=== PATIENT | male | born 1945 | race Caucasian/White ===

== ENCOUNTER 2021-04-03 14:19 | Outpatient (CLI) | payer MEDICARE, BC, SELFPAY ==
--- NOTE | ~2021-04-03 | US_ITS ---
EXAMINATION: US art doppler w peggy ADAMS EXAM DATE: 04/03/2021 14:54 INDICATION: I73.9 - Peripheral vascular disease, unspecified. TECHNIQUE: Segmental pressures and plethysmographic and Doppler waveforms of the brachial and lower e xtremity arteries were obtained. There is no prior study for comparison. FINDINGS: Right and left brachial artery pressures of 159 mm Hg and 162 mm Hg, respectively, are concordant (no rmal difference <= 30 mmHg). RIGHT LEG: The ankle-brachial index (BRE) is could not obtain (normal >= 0.9-1). The great toe-brachial index (TBI) is 1.06 (normal >= 0.65). The lower extremity ratios, segmental pressure gradients as follows; Proximal superficial femoral artery:- Could not obtain ( mmHg). Distal superficial femoral artery: ----- Could not obtain ( mmHg). Popliteal: Could not obtain ( mmHg). Dorsalis pedis: Could not obtain ( mmHg). Posterior tibial: Could not obtain ( mmHg). (Normal gradients <= 20-30 mmHg between adjacent levels on the same leg or the same levels on the two legs). Arterial waveforms are biphasic. LEFT LEG: The ankle-brachial index (BRE) is could not obtain (normal >= 0.9-1). The great toe-brachial index (TBI) is 1.20 (normal >= 0.65). The lower extremity ratios, segmental pressure gradients as follows; Proximal superficial femoral artery:- Could not obtain ( mmHg). Distal superficial femoral artery: ----- Could not obtain ( mmHg). Popliteal: Could not obtain ( mmHg). Dorsalis pedis: Could not obtain ( mmHg). Posterior tibial: Could not obtain ( mmHg). (Normal gradients <= 20-30 mmHg between adjacent levels on the same leg or the same levels on the two legs). Arterial waveforms are biphasic. IMPRESSION: 1. Could not obtain ABIs, could not Cuff Occlude arteries. 2. Biphasic waveforms. Normal toe brachial indices bilaterally. Reviewed, dictated and finalized at location B. NCIAL ASSOCIATE
== END 2021-04-03 14:20 | disposition home or self-care (01) ==
PROVIDERS: PCP Family Medicine; Visit Provider Family Medicine
DX: I73.9 Peripheral vascular disease, unspecified (principal)
CPT/HCPCS: 93923

== ENCOUNTER 2021-07-27 13:51 | Outpatient (CLI) | payer MEDICARE, BC, SELFPAY ==
--- NOTE | ~2021-07-27 | US_ITS ---
EXAMINATION: US venous doppler LE RT DATE: 07/27/2021 14:52 INDICATION: Right lower limb edema. TECHNIQUE: Grayscale ultrasound images without and with compression and Doppler ultrasound images of the right lower extremity veins were obtained. COMPARISON: None. FINDINGS: The visualized portions of right common femoral vein, profunda (deep) femoral vein, femoral vein, pop liteal vein, peroneal veins, posterior tibial veins, and greater saphenous vein outflow are patent. T here is a 2.6 cm hypoechoic and anechoic subcutaneous mass anterior to the tibia. IMPRESSION: 1. No deep venous thrombosis. 2. Subcutaneous mass anterior to the tibia, likely a hematoma. Reviewed, dictated and finalized at location A.
== END 2021-07-27 13:52 | disposition home or self-care (01) ==
PROVIDERS: PCP Family Medicine; Visit Provider Family Medicine
DX: R22.41 Localized swelling, mass and lump, right lower limb (principal)
CPT/HCPCS: 93971

== ENCOUNTER → 2022-04-16 08:54 | Outpatient (CLI) | payer MEDICARE, SELFPAY ==
--- NOTE | ~2022-04-16 | MM_ITS ---
EXAMINATION: MM diagnostic derick BI w haley HISTORY: Bilateral breast lumps, tenderness TECHNIQUE: Bilateral MLO and CC 3-D tomosynthesis images were performed and synthetic 2-D images were generated. CAD analysis was submitted and interpreted. COMPARISON: None BREAST PARENCHYMAL COMPOSITION: There are scattered areas of fibroglandular density. FINDINGS: Mild bilateral gynecomastia. No suspicious mass or architectural distortion, malignant calc ification, skin thickening or retraction is detected. IMPRESSION: Mild bilateral gynecomastia . BI-RADS Category 2: Benign finding(s). Reviewed, dictated and finalized at location A. WORKS ASSEMBLER
== END ==
PROVIDERS: PCP Family Medicine; Visit Provider Nurse Practitioner Gerontology
DX: N64.4 Mastodynia (principal); N62 Hypertrophy of breast
CPT/HCPCS: 77062; 77066; G0279

== ENCOUNTER 2024-12-23 13:24 | Outpatient (CLI) | payer MEDICARE, BC, SELFPAY ==
--- NOTE | 2024-12-23 14:03 | ECHO_ITS ---
Patient Info Name: Jack Deluca Age: 79 years : 1945 Gender: Male Ht: 68 in Wt: 280 lbs BSA: 2.53 m2 HR: 61 bpm BP: 134 / 85 mmHg Technical Quality: Poor Exam Date: 12/23/2024 2:14 PM Patient Status: O Admit Date: 12/23/2024 Exam Type: CA echo dop bubble study w con Complete two-dimentional, color flow and Doppler transthoracic echocardiogram is performed with agitated saline and with contrast to opacify the left ventricle and to improve the delineation of the left ventricle endocardial borders. Systems Integration Manager: Edwin Soto III Attending Provider: Maia Cabrera Contrast/Agitated Saline Contrast/Ag. Saline: Agitated Saline Amount: 12.00 ml Existing IV Access: No IV Access Condition: patent with no signs of infiltration New IV Access: Left Site Condition: IV removed Contrast/Ag. Saline: Definity Amount: 2.00 ml Administered By: Edwin Soto III Existing IV Access: No IV Access Condition: patent with no signs of infiltration New IV Access: Left Site Condition: IV removed Reason for Poor Study: poor echocardiographic windows Summary 1. Definity contrast administered improved wall motion interpretation. 2. Left ventricular chamber dimension is normal. 3. Left ventricular systolic function is normal, estimated at 60-65. 4. The left ventricular diastolic function is grade I diastolic dysfunction. 5. E/e' 3 is not elevated. 6. Left atrial chamber dimension is mildly enlarged. 7. There is mild aortic valve sclerosis. 8. There is trace mitral valve regurgitation. 9. The aortic root size at the sinus of Valsalva is mildly dilated at 4.3 cm. 10. The prox ascending aorta size is moderately dilated at 4.6 cm. Left Ventricle E/e' 3 is not elevated. Left ventricular chamber dimension is normal. Left ventricular systolic function is normal, estimated at 60-65. The left ventricular diastolic function is grade I diastolic dysfunction. Definity contrast administered improved wall motion interpretation. Right Ventricle Right ventricular chamber dimension is normal. Right ventricular systolic function is normal and with normal TAPSE 2.2 cm. Left Atria Left atrial chamber dimension is mildly enlarged. Right Atria Right atrial chamber dimension is normal. Atrial Septum Intact interatrial septum visualized by 2D and agitated saline imaging. Agitated saline injection with and without valsalva maneuver opacified right side cardiac chambers without obvious shunt to left side cardiac chambers. Aortic Valve The aortic valve is trileaflet. There is mild aortic valve sclerosis. There is no aortic valve stenosis. There is no aortic valve regurgitation. Pulmonic Valve There is no pulmonic regurgitation. Mitral Valve There is no mitral valve stenosis. There is trace mitral valve regurgitation. Tricuspid Valve There is no tricuspid valve regurgitation. Pericardium/Pleural There is no pericardial effusion. Inferior Vena Cava Normal inferior vena cava with >50% collapse upon inspiration consistent with normal right atrial pressure, 5 mmHg. Aorta The aortic root size at the sinus of Valsalva is mildly dilated at 4.3 cm. The prox ascending aorta size is moderately dilated at 4.6 cm. Left Ventricular Outflow Tract Name Value Normal LVOT Doppler LVOT Peak Velocity 107 cm/s LVOT Peak Gradient 5 mmHg LVOT Mean Gradient 2 mmHg LVOT VTI 23 cm LVOT VTI/AV VTI Ratio 1.1 Pulmonic Valve Name Value Normal PV Doppler PV Peak Velocity 94 cm/s PV Peak Gradient 4 mmHg PV Mean Gradient 2 mmHg Mitral Valve Name Value Normal MV Doppler MV Peak Gradient 2 mmHg MV Mean Gradient 1 mmHg MV Diastolic Function MV E Peak Velocity 40 cm/s MV A Peak Velocity 53 cm/s MV E/A 0.8 MV Decel Time (PW) 346 ms MV Annular TDI MV E/e' (Septal) 4.1 MV E/e' (Lateral) 3.4 MV E/e' (Average) 3.7 Tricuspid Valve Name Value Normal Estimated PAP/RSVP RA Pressure 5 mmHg <=5 TV Annular TDI TV Lateral Bertha s' Velocity 19.5 cm/s >=9.5 Aortic Valve Name Value Normal AV Doppler AV Peak Velocity 118 cm/s AV Peak Gradient 6 mmHg AV Mean Gradient 3 mmHg AV VTI 21 cm AV DI (Marek) 0.91 Ventricles Name Value Normal LV Fractional Shortening/Ejection Fraction 2D/MM LV Diastolic Volume (4C MOD) 113 ml LV EF (4C MOD) 66 % LV Diastolic Volume (2C MOD) 94 ml LV EF (2C MOD) 58 % LV Diastolic Volume (BP MOD) 106 ml 62-150 LV Diastolic Volume Index (BP MOD) 42 ml/m2 34-74 LV Systolic Volume (BP MOD) 40 ml 21-61 LV Systolic Volume Index (BP MOD) 16 ml/m2 11-31 LV EF (BP MOD) 62 % 52-72 LV Diastolic Length (4C) 8.2 cm LV Systolic Length (4C) 6.0 cm LV Stroke Volume (4C MOD) 74 ml Atria Name Value Normal LA Dimensions LA Volume (4C A-L) 71 ml LA Volume (BP A-L) 86 ml RA Dimensions RA Systolic Major [place] Length (4C) 6.5 cm 2.1-2.7 RA Area (4C) 27.9 cm2 <=18.0 Report Signatures
--- OUTSIDE RECORDS SUMMARY | 2024-12-23 14:56 | XMS_ITS | Clinical Summary ---
Author Organization [facility] [place] [address] Address [address] [place] [address] Care Team Providers Care Inspection Clerk Name Role Phone Triston Ray MD Primary Care Provider Allergies Active Allergy Reactions Criticality Noted Date Comments Penicillins Diarrhea Low 05/05/2021 Medications aspirin 325 mg tablet Take 1 tablet (325 mg total) by mouth daily Active atenoloL (TENORMIN) 50 mg tablet Take 1 tablet (50 mg total) by mouth daily 03/06/2021 Active atorvastatin (LIPITOR) 20 mg tablet Take 1 tablet (20 mg total) by mouth daily 04/09/2021 Active finasteride (PROSCAR) 5 mg tablet Take 1 tablet (5 mg total) by mouth daily 04/09/2021 Active npeqfwji-xkel-p ollag-hyalur ac [id number] mg capsule Take by mouth Active potassium chloride ER 20 mEq CR tablet Take 1 tablet (20 mEq total) by mouth daily 02/28/2021 Active tamsulosin (FLOMAX) 0.4 mg extended release capsule Take 1 capsule (0.4 mg total) by mouth nightly 04/09/2021 Active clindamycin (CLEOCIN) 150 mg capsule Take 1 capsule (150 mg total) by mouth as needed 4 caps for dental work Active irbesartan (AVAPRO) 150 mg tablet Take 1 tablet (150 mg total) by mouth daily 05/25/2021 Active cholecalciferol (VITAMIN D-3) 2000 unit capsule 1 capsule (2,000 Units total) Active vitamin E (AQUASOL E) 400 unit capsule Take 1 capsule (400 Units total) by mouth Active saw palmetto 450 mg capsule Take by mouth 2 (two) times a day Active bumetanide (BUMEX) 2 mg tablet Take 1 tablet (2 mg total) by mouth daily 06/17/2023 Active magnesium oxide 400 mg magnesium capsule Take by mouth Active vit C/E/cuperic/zin c/lutein (PRESERVISION LUTEIN ORAL) Take by mouth Active Active Problems Problem Noted Date Diagnosed Date Palpitations 01/08/2022 PFO (patent foramen ovale) 05/22/2021 Hyperlipidemia Hypertension Enlarged LA (left atrium) Bilateral lower extremity edema History of atrial fibrillation Surgical History Surgery Date Site/Laterality Comments SHOULDER ARTHROPLASTY Medical History Medical History Date Comments Atrial septal defect Hypertension Hyperlipidemia BPH (benign prostatic hyperplasia) Family History Medical History Relation Name Comments Heart attack Mother Hypertension Mother Relation Name Status Comments Father unknown Mother (Age 64) Social History Tobacco Use Types Packs/Day Years Used Date Smoking Tobacco: Former Cigarettes Q uit: 2006 Smokeless Tobacco: Never Tobacco Cessation:Counseling Given: Not Answered Sex and Gender Information Value Date Recorded Sex Assigned at Not on file Legal Sex Male 2:19 PM [employer] Gender Identity Not on file Sexual Orientation Not on file Obstetrics History Last Filed Vital Signs Vital Sign Reading Time Taken Comments Blood Pressure 114/66 07/27/2024 10:53 AM CDT Pulse 74 07/15/2023 10:07 AM CDT Temperature - - Respiratory Rate - - Oxygen Saturation 94% 07/15/2023 10: 07 AM CDT Inhaled Oxygen Concentration - - Weight 127.4 kg (280 lb 14.4 oz) 2023 10:07 AM CDT Height 177.8 cm (5' 10) 07/15/2023 10: 07 AM CDT Body Mass Index 40.3 07/15/2023 10:07 AM CDT Plan of Treatment Health Maintenance Due Date Last Done Comments Depression Screening 1945 Fall Risk Assessment 1945 Hepatitis C Screening 1945 DTaP/Tdap/Td Vaccine (1 - Tdap) 1957 Hepatitis B Screening 1964 Pneumococcal vaccine 65+ (1 of 1 - PCV) 1996 Zoster Vaccine (1 of 2) 1996 Abdominal Aortic Aneurysm (AAA) Screen 06/09/2011 Well Visit 65+ 06/09/2011 Influenza Vaccine (#1) 2024 11/23/2022, 2021 Insurance MEDICARE MEDICARE [facility] Member Subscriber Plan / Payer (Ef fective 2015-Present) Name:Jack Deluca Member ID:[id number] Relation to Subscriber:Self Name:Jack Deluca Subscriber ID:[id number] Payer ID:[id number] (NAIC) Type:[facility] Address: [id number] [place] [phone] Care Teams Inspection Clerk Relationship Specialty Start Date End Date Triston Ray MD [address] [facility] [address] [place] [phone] PCP - General Family Medicine 07/27/24
[2024-12-23] MEDS: PERFLUTREN LIPID MICROSPHERES 1.5 ML VIAL DILUTED TO 10 ML TOTAL VOLUME IV PUSH (15:38)
--- NOTE | 2024-12-23 15:39 | IVDEFINITY ---
Prior to administration of IV Definity the patient was educated on the risks and benefits of the imaging enhancing agent including potential adverse side effects. The patient verbalized understanding. Allergies were verified. No exclusion criteria were identified and at least one of the following inclusion criteria were met: 1) physician request, 2) patient technically difficult to image (per the [place] [employer] guidelines of two or more segments not discernable within the apical view), or 3) questionable left ventricular function. ?
== END 2024-12-23 13:25 | disposition home or self-care (01) ==
PROVIDERS: PCP Family Medicine; Visit Provider Physician Assistant
DX: R93.1 Abnormal findings on diagnostic imaging of heart and coronary circulation (principal); Q21.10 Atrial septal defect, unspecified; I51.7 Cardiomegaly; I51.89 Other ill-defined heart diseases
CPT/HCPCS: 96375; C8929; Q9957